=== PATIENT | male | born 1995 | race African-American/Black ===

== ENCOUNTER 2022-06-26 21:24 | Inpatient (IN) | payer MEDICAID ==
[~2022-06-26] VITALS: Ht 180.3 cm; Wt 72.8 kg
[2022-06-26 22:28] LABS: BASOPHILS % (AUTO) 1.1 % (0.0-2.0); EOSINOPHILS % (AUTO) 0.5 % (1.0-6.0); HEMATOCRIT 45.7 % (41-53); HEMOGLOBIN 15.7 g/dL (13.5-17.5); LYMPHOCYTES # (AUTO) 1.5 K/uL (1.0-4.8); LYMPHOCYTES % (AUTO) 23.7 % (22.0-44.0); MEAN CORPUSCULAR HEMOGLOBIN 29.8 pg (26.0-34.0); MEAN CORPUSCULAR HGB CONC 34.4 G/dL (31.0-37.0); MEAN CORPUSCULAR VOLUME 87 fL (80-100); MONOCYTES # (AUTO) 0.4 K/uL (0.1-1.0); NEUTROPHILS # (AUTO) 4.3 K/uL (1.8-7.7); NEUTROPHILS % (AUTO) 68.7 % (40.0-70.0); PLATELET COUNT (AUTO) 274 K/uL (150-450); RED BLOOD CELL COUNT(AUTO) 5.28 MIL/uL (4.50-5.90); RED CELL DISTRIBUTION WIDTH 12.4 % (11.5-14.5)
[2022-06-26 22:37] LABS: ANION GAP 7 mmol/L (8-16); CALCIUM, TOTAL 9.3 mg/dL (8.8-10.5); CARBON DIOXIDE 30 mmol/L (22-29); CHLORIDE 100 mmol/L (98-107); CREATININE 1.09 mg/dL (0.60-1.30); GLUCOSE,RANDOM 383 mg/dL (70-110); POTASSIUM 4.2 mmol/L (3.5-5.1); SODIUM SERUM 137 mmol/L (136-145); UREA NITROGEN, BLOOD 18 mg/dL (7-18)
[2022-06-26 22:39] LABS: GLOMERULAR FILTR. RATE CALC > 60 mL/min (>60)
[2022-06-26 22:43] LABS: ALANINE AMINOTRANSFERASE 24 U/L (12-78); ALBUMIN 3.7 g/dL (3.4-5.0); ALKALINE PHOSPHATASE 100 U/L (46-116); ASPARTATE AMINOTRANSFERASE 13 U/L (15-37); BILIRUBIN,TOTAL 0.5 mg/dL (0.1-1.0); TOTAL PROTEIN, SERUM 7.6 g/dL (6.4-8.2)
[2022-06-26 23:07] LABS: COVID AG,FIA SOURCE NASOPHARYNGEAL
[2022-06-26 23:16] LABS: AMPHET/METH SCREEN,URINE NEGATIVE (NEGATIVE); BARBITURATE SCREEN, URINE NEGATIVE (NEGATIVE); BENZODIAZEPINES SCREEN,URINE NEGATIVE (NEGATIVE); CANNABINOID SCREEN,URINE NEGATIVE (NEGATIVE); COCAINE SCREEN,URINE NEGATIVE (NEGATIVE); METHADONE SCREEN, URINE NEGATIVE (NEGATIVE); OPIATE SCREEN,URINE NEGATIVE (NEGATIVE)
[2022-06-26 23:17] LABS: PHENCYCLIDINE SCREEN,URINE NEGATIVE (NEGATIVE)
[2022-06-26] MEDS ORDERED: ZOLPIDEM TARTRATE 10 MG TABLET PO PRN (23:30)
[2022-06-26] MEDS ORDERED: QUEtiapine FUMARATE 100 MG TABLET PO PRN (23:30)
[2022-06-26] MEDS ORDERED: LORazepam 2 MG TABLET PO PRN (23:30)
[2022-06-26 23:34] LABS: APPEARANCE,URINE CLEAR (CLEAR); BILIRUBIN,URINE NEGATIVE (NEGATIVE); GLUCOSE, URINE (UA) >=1000 mg/dL (NEGATIVE); LEUKOCYTE ESTERASE ,URINE NEGATIVE (NEGATIVE); NITRATE,URINE NEGATIVE (NEGATIVE); OCCULT BLOOD,URINE NEGATIVE (NEGATIVE); PH,URINE 5.5 (5.0-8.0); PROTEIN,URINE NEGATIVE (NEGATIVE); SPECIFIC GRAVITIY, URINE 1.044 (1.003-1.030); UROBILINOGEN,URINE <=1.0 mg/dL (<=1.0)
[2022-06-26 23:37] LABS: BACTERIA,URINE None Seen /HPF (None Seen); RBC,URINE None Seen /HPF (0-2); SQUAMOUS EPITHELIAL CELL,UR Rare /LPF (None Seen); WBC,URINE 0-2 /HPF (0-5)
[2022-06-26 23:56] LABS: GLUCOSE,POINT OF CARE 393 MG/DL (70-110)
[2022-06-27 01:41] LABS: GLUCOSE,POINT OF CARE 356 MG/DL (70-110)
[2022-06-27 02:30] VITALS: BP 104/74
[2022-06-27] MEDS ORDERED: PNEUMOCOCCAL VACCINE POLYVALENT 0.5 ML VIAL [PPSV23] IM. ONE (04:30)
[2022-06-27] MEDS ORDERED: INFLUENZA VIRUS VACCINE QVS 2022-23 (6MO+)/PF 60 MCG/0.5 ML SYRINGE IM. ONE (04:30)
[2022-06-27 06:51] LABS: GLUCOMETER DEV NAME(LOC) 3E.I 2; GLUCOSE,POINT OF CARE 274 MG/DL (70-110)
[2022-06-27 08:54] VITALS: BP 127/64
[2022-06-27] MEDS ORDERED: GLUCAGON,HUMAN RECOMBINANT 1 MG VIAL IM PRN (10:45)
[2022-06-27] MEDS ORDERED: INSULIN LISPRO 100 UNITS/ML SQ PRN (10:45)
[2022-06-27] MEDS ORDERED: DEXTROSE 50%-WATER 25 GM/50 ML SYRINGE IVP PRN (11:15)
[2022-06-27] MEDS ORDERED: LOPERAMIDE HCL 2 MG CAPSULE PO PRN (11:45)
[2022-06-27] MEDS ORDERED: MAG HYDROX/AL HYDROX/SIMETH ES 30 ML SUSPENSION UDCUP PO PRN (11:45)
[2022-06-27] MEDS ORDERED: PROMETHAZINE HCL 25 MG TABLET PO PRN (11:45)
[2022-06-27] MEDS ORDERED: HydrOXYzine PAMOATE 50 MG CAPSULE PO PRN (11:45)
[2022-06-27] MEDS ORDERED: MAGNESIUM HYDROXIDE SUSPENSION 30 ML UDCUP PO PRN (11:45)
[2022-06-27] MEDS ORDERED: TUBERCULIN, PURIFIED PROTEIN DERIVATIVE 5 TU/0.1 ML SYRINGE ID ONE (11:45)
[2022-06-27] MEDS ORDERED: ACETAMINOPHEN 325 MG TABLET PO PRN (11:45)
[2022-06-27] MEDS ORDERED: GuaiFENesin/D-METHORPHAN [SUGAR-FREE] 200-20MG/10 ML SYRUP UDCUP PO PRN (11:45)
[2022-06-27 16:00] VITALS: BP 106/63
[2022-06-27] MEDS: INSULIN LISPRO 100 UNITS/ML SQ PRN ×2 (17:38→20:48)
[2022-06-27] MEDS: THIAMINE 100 MG TABLET PO SCH (17:46)
[2022-06-27 18:01] LABS: GLUCOMETER DEV NAME(LOC) 3E.I 2; GLUCOSE,POINT OF CARE 233 MG/DL (70-110)
[2022-06-27] MEDS: MELATONIN 5 MG TABLET PO SCH (20:28)
[2022-06-27 20:36] LABS: GLUCOMETER DEV NAME(LOC) 3E.I 2; GLUCOSE,POINT OF CARE 290 MG/DL (70-110)
[2022-06-28 05:42] LABS: GLUCOMETER DEV NAME(LOC) 3E.I 2; GLUCOSE,POINT OF CARE 217 MG/DL (70-110)
[2022-06-28] MEDS: INSULIN LISPRO 100 UNITS/ML SQ PRN ×4 (06:35→21:10)
[2022-06-28 08:00] VITALS: BP 105/71
[2022-06-28 08:05] LABS: CHOL/HDL RATIO 5.1 (4.2-7.3); FREE T4 (FREE THYROXINE) 0.7 ng/dL (0.76-1.46); THYROID STIMULATING HORMONE 0.43 uIU/mL (0.36-3.74)
[2022-06-28] MEDS ORDERED: FLUoxetine HCL 20 MG CAPSULE PO SCH (09:00)
[2022-06-28] MEDS: MULTIVITAMINS WITH MINERALS, THERAPEUTIC TABLET PO SCH (09:20)
[2022-06-28] MEDS: NALTREXONE HCL 50 MG TABLET PO SCH (09:21)
[2022-06-28] MEDS: THIAMINE 100 MG TABLET PO SCH ×2 (09:21→16:46)
[2022-06-28] MEDS: DEXTROMETHORPHAN HBR/QUINIDINE 20/10 MG CAPSULE PO SCH (09:21)
[2022-06-28] MEDS: FOLIC ACID 1 MG TABLET PO SCH (09:22)
[2022-06-28] MEDS: OMEGA-3/DHA/EPA/FISH OIL 1,000 MG CAPSULE PO SCH (09:22)
[2022-06-28 11:31] LABS: GLUCOMETER DEV NAME(LOC) 3EX.2; GLUCOSE,POINT OF CARE 252 MG/DL (70-110)
[2022-06-28 16:04] VITALS: BP 131/73
[2022-06-28] MEDS: MetFORMIN HCL 500 MG TABLET PO SCH (16:46)
[2022-06-28 17:47] LABS: GLUCOMETER DEV NAME(LOC) 3EX.2; GLUCOSE,POINT OF CARE 302 MG/DL (70-110)
[2022-06-28 20:41] LABS: GLUCOMETER DEV NAME(LOC) 3E.I 2; GLUCOSE,POINT OF CARE 311 MG/DL (70-110)
[2022-06-28] MEDS: MELATONIN 5 MG TABLET PO SCH (21:10)
[2022-06-29 04:06] LABS: HEPATITIS C AB (EIA) <0.1 s/co ratio (0.0-0.9)
[2022-06-29 06:42] LABS: GLUCOMETER DEV NAME(LOC) 3E.I 2; GLUCOSE,POINT OF CARE 100 MG/DL (70-110)
[2022-06-29] MEDS: MetFORMIN HCL 500 MG TABLET PO SCH ×2 (07:06→16:44)
[2022-06-29] MEDS: FOLIC ACID 1 MG TABLET PO SCH (07:06)
[2022-06-29 08:00] VITALS: BP 121/66
[2022-06-29] MEDS: THIAMINE 100 MG TABLET PO SCH ×2 (08:04→16:43)
[2022-06-29] MEDS: OMEGA-3/DHA/EPA/FISH OIL 1,000 MG CAPSULE PO SCH (08:04)
[2022-06-29] MEDS: DEXTROMETHORPHAN HBR/QUINIDINE 20/10 MG CAPSULE PO SCH (08:04)
[2022-06-29] MEDS: MULTIVITAMINS WITH MINERALS, THERAPEUTIC TABLET PO SCH (08:05)
[2022-06-29] MEDS: NALTREXONE HCL 50 MG TABLET PO SCH (08:06)
[2022-06-29] MEDS ORDERED: FLUoxetine HCL 20 MG CAPSULE PO SCH ×2 (09:00)
[2022-06-29] MEDS: INSULIN LISPRO 100 UNITS/ML SQ PRN (11:32)
[2022-06-29 11:41] LABS: GLUCOMETER DEV NAME(LOC) 3E.I 2; GLUCOSE,POINT OF CARE 265 MG/DL (70-110)
[2022-06-29] MEDS ORDERED: OMEG-135 PO (12:17)
[2022-06-29] MEDS ORDERED: DEXT1CAP3 PO (12:17)
[2022-06-29] MEDS ORDERED: NALT50TA PO (12:17)
[2022-06-29] MEDS ORDERED: MELA5TAB40 PO (12:17)
[2022-06-29] MEDS ORDERED: METF-1211 PO (12:17)
[2022-06-29] MEDS ORDERED: PROZ20 PO (12:17)
[2022-06-29 16:38] VITALS: BP 115/82
[2022-06-29 16:56] LABS: GLUCOMETER DEV NAME(LOC) 3E.I 2; GLUCOSE,POINT OF CARE 311 MG/DL (70-110)
== END 2022-06-29 17:30 | disposition home or self-care (01) | DRG 754 ==
LOC: EMS 21:27 → 3EI 06-27 00:24
PROVIDERS: ADMIT Psychiatry & Neurology Psychiatry; ATTEND Psychiatry & Neurology Psychiatry
DX: F32.9 Major depressive disorder, single episode, unspecified (principal); E11.9 Type 2 diabetes mellitus without complications; R45.851 Suicidal ideations; E78.5 Hyperlipidemia, unspecified; Z20.822 Contact with and (suspected) exposure to COVID-19; Z55.9 Problems related to education and literacy, unspecified; Z59.9 Problem related to housing and economic circumstances, unspecified; Z63.9 Problem related to primary support group, unspecified; Z65.3 Problems related to other legal circumstances; Z81.8 Family history of other mental and behavioral disorders; Z91.199 Patient's noncompliance with other medical treatment and regimen due to unspecified reason; Z91.51 Personal history of suicidal behavior
CPT/HCPCS: 80053; 80061; 80074; 81001; 82962; 83036; 84439; 84443; 85025; 86592; 99285; G0480; Q9967